=== PATIENT | male | born 1980 | race Caucasian/White ===

== ENCOUNTER 2017-07-07 09:02 | Emergency (ER) | payer OTHER ==
[~2017-07-07] VITALS: Ht 177.8 cm; Wt 88.1 kg
[2017-07-07] MEDS ORDERED: IBUPROFEN800 MG PO (10:00)
[2017-07-07] MEDS ORDERED: TRAMADOL HCL50 MG PO (10:00)
[2017-07-07] MEDS ORDERED: FLEXERIL10 MG PO (10:00)
[2017-07-07 10:23] VITALS: BP 111/76
== END 2017-07-07 10:23 | disposition home or self-care (01) ==
LOC: EME 09:02
DX: S46.912A Strain of unspecified muscle, fascia and tendon at shoulder and upper arm level, left arm, initial encounter (principal); S00.83XA Contusion of other part of head, initial encounter; S80.02XA Contusion of left knee, initial encounter; V49.40XA Driver injured in collision with unspecified motor vehicles in traffic accident, initial encounter; Z96.652 Presence of left artificial knee joint; F17.200 Nicotine dependence, unspecified, uncomplicated; Z71.6 Tobacco abuse counseling
CPT/HCPCS: 99281; 99283